=== PATIENT | female | born 2000 | race Caucasian/White ===

== ENCOUNTER 2021-03-17 11:39 | Emergency (ER) | payer OTHER, SELFPAY ==
[2021-03-17 12:01] VITALS: BP 110/71; PULSE 92; RESP 14; TEMP 36.4; O2SAT 99; BMI 18.0
[2021-03-17 12:28] LABS: MANUAL DIFF FLAG NO
[2021-03-17 12:29] LABS: Basophils Percent Auto 0.6 % (0-2); Eosinophils Absolute Auto 0.2 X10*3/uL (0.0-0.4); Eosinophils Percent Auto 3.7 % (0-4); Hematocrit 41.6 % (37-47); Hemoglobin 13.7 g/dl (12.0-16.0); Imm Gran Abs Auto 0.01 X10*3/uL (0.00-0.03); Imm Gran Pct Auto 0.2 % (0.0-0.4); Lymphocytes Absolute Auto 2.3 X10*3/uL (1.2-4.9); Lymphocytes Percent Auto 35.6 % (20-40); Mean Corpuscular HGB Conc 32.9 g/dl (31.0-35.0); Mean Corpuscular Hemoglobin 28.7 pg (27.0-33.0); Mean Corpuscular Volume 87.2 fL (80-98); Mean Platelet Volume 10.8 fL (9.4-12.3); Monocytes Absolute Auto 0.4 X10*3/uL (0.1-1.2); Monocytes Percent Auto 6.4 % (2-11); Neutrophils Absolute Auto 3.4 X10*3/uL (2.0-8.3); Neutrophils Percent Auto 53.5 % (45-73); Platelet Count 234 X10*3/uL (160-400); Red Blood Count 4.77 X10*6/uL (4.20-5.50); Red Cell Distribution Width 14.9 % (11.0-16.0); White Blood Count 6.4 X10*3/uL (4.8-10.8)
[2021-03-17 12:37] LABS: INTERNATIONAL NORM RATIO 0.9 (0.9-1.1); Prothrombin Time 10.6 SEC (10.8-13.0)
[2021-03-17 12:40] LABS: Partial Thromboplastin Time 37.3 SEC (24.1-38.0)
--- NOTE | 2021-03-17 12:46 | ED_ITS ---
HPI - General Adult General Chief complaint: Skin/Abscess/Foreign Body Stated complaint: bruising unknown cause Time Seen by Provider: 03/17/21 12:10 Source: patient Mode of arrival: ambulatory History of Present Illness HPI narrative: 20-year-old female with a past medical history of anemia presenting to the ED complaining of random bruising to bilateral thighs and various stages of healing x1 month. Denies known injury/trauma or falls. Denies history of abuse, reports she feels safe at home, denies known personal or family history of bleeding or clotting disorders. Denies fever, chills, CP/SOB, lightheadedness/dizziness, headache, abdominal pain, nausea/vomiting, recent travel Related Data Allergies Allergy/AdvReac Type Severity Reaction Status Date / Time Penicillins [PENICILLINS] Allergy Unknown HIVES Unverified 06/18/20 19:10 Review of Systems Review of Systems: Constitutional: No Fever, No Chills, No Fatigue, No Malaise ENT/Mouth: No sore throat, No Rhinorrhea, No Swallowing Difficulty Eyes: No Eye Pain, No Swelling, No Redness, No Vision Changes Cardiovascular: No Chest Pain, No SOB, No Edema Respiratory: No Cough, No Sputum, No Dyspnea Gastrointestinal: No Nausea, No Vomiting, No Abdominal pain, No Hematochezia, No Melena Genitourinary: No irregular bleeding, No Hematuria Musculoskeletal: No joint pain, No Myalgias, No Joint Swelling Skin: No rash Neuro: No Weakness, No Numbness, No Paresthesias, No Dizziness, No Headache Heme/Lymph: + Bruising, No Bleeding, No Lymphadenopathy Yes all other systems are reviewed and are negative [facility] Past Medical History Attestation statement: The following information was validated with the patient. Medical History Anemia Social History Social History Advance Directives: No Advance Directives Information Provided: No Patient : No Physical Exam Vital Signs: Vital Signs: Last Vital Signs Temp 97.5 F 03/17/21 12:01 Pulse 92 03/17/21 12:01 Resp 14 03/17/21 12:01 BP 110/71 03/17/21 12:01 Pulse Ox 99 03/17/21 12:01 Body Mass Index 18.0 Const: General: cooperative, healthy appearing, no acute distress, alert and awake Orientation/consciousness: patient oriented x3 Limitations: no limitations HENMT: Head: Yes normal to inspection Ears: hearing grossly normal bilaterally General nose exam: Normal external nose present Face and sinus: Yes normal facial exam Eyes: General: appearance normal, both eyes and all related structures Corneas: corneas normal Pupils: Equal, round and reactive pupils present EOM: EOMs intact bilaterally Neck: Neck: Yes normal visual inspection and Yes no meningeal signs Resp: Effort & Inspection: normal respiratory effort, no stridor and not tachypneic Cardio: Rate: regular rate GI: Inspection: Yes normal to inspection Palpation (GI): Soft to palpation Skin: Other: Bruising in various stages of healing noted to bilateral thighs. + mildly tender to palpation. No surrounding cellulitis/streaking Neuro: General: patient oriented x3, tone normal, moves all extremities and no meningeal signs Cranial nerves: Yes Equal, round and reactive pupils present Gait exam (Neuro): Normal gait present Extrem: General: Yes normal to inspection Course Course Course Narrative: -1339--labs unremarkable. Results discussed with patient including worrisome signs and symptoms and strict return precautions. Patient is to follow up with PCP. She verbalized understanding feel safe for discharge home Medical Decision Making MDM Narrative Medical decision making narrative: 20-year-old female with a past medical history of anemia presenting to the ED complaining of random bruising to bilateral thighs and various stages of healing x1 month. On exam vital signs stable, NAD, well appearing, bruising noted in various stages of healing to bilateral thighs. Concern for bleeding/clotting disorder vs anemia vs ?abuse or injury although patient denies Plan: CBC, BMP, PT INR/PTT Lab Data Result diagrams: 03/17/21 12:20 03/17/21 12:20 Labs: Lab Results 03/17/21 03/17/21 03/17/21 Range/Units 12:20 12:20 12:20 WBC 6.4 (4.8-10.8) X10*3/uL RBC 4.77 (4.20-5.50) X10*6/uL Hgb 13.7 (12.0-16.0) g/dl Hct 41.6 (37-47) % MCV 87.2 (80-98) fL MCH 28.7 (27.0-33.0) pg MCHC 32.9 (31.0-35.0) g/dl RDW 14.9 (11.0-16.0) % Plt Count 234 (160-400) X10*3/uL MPV 10.8 (9.4-12.3) fL Immature Gran % (Auto) 0.2 (0.0-0.4) % Neut % (Auto) 53.5 (45-73) % Lymph % (Auto) 35.6 (20-40) % [place] % (Auto) 6.4 (2-11) % Eos % (Auto) 3.7 (0-4) % Baso % (Auto) 0.6 (0-2) % Lymph # (Auto) 2.3 (1.2-4.9) X10*3/uL [place] # (Auto) 0.4 (0.1-1.2) X10*3/uL Eos # (Auto) 0.2 (0.0-0.4) X10*3/uL Baso # (Auto) 0.0 (0.0-0.2) X10*3/uL Abs Immat Gran (auto) 0.01 (0.00-0.03) X10*3/uL Absolute Neuts (auto) 3.4 (2.0-8.3) X10*3/uL Absolute Nucleated RBC 0.000 (0.0-0.012) X10*3/uL Nucleated RBC % (auto) 0.0 (0.0-0.2) /100WBC PT 10.6 L (10.8-13.0) SEC INR 0.9 (0.9-1.1) APTT 37.3 (24.1-38.0) SEC Sodium 141 (135-145) mmol/L Potassium 4.6 (3.3-5.1) mmol/L Chloride 107 (96-108) mmol/L Carbon Dioxide 27 (22-29) mmol/L Anion Gap 12 (12-20) BUN 18 H (9-16) mg/dL Creatinine 0.84 (0.5-1.4) mg/dL Estim Creat Clear Calc 80.2 Estimated GFR > 60 Random Glucose 84 (60-115) mg/dL Calcium 9.6 (8.4-10.2) mg/dL Magnesium 2.3 (1.6-2.6) mg/dL Total Bilirubin 0.3 (0.0-1.0) mg/dL Direct Bilirubin < 0.2 (0.0-0.5) mg/dL AST 16 (5-31) U/L ALT 10 (0-31) U/L Alkaline Phosphatase 82 (39-117) U/L Total Protein 7.2 (6.5-8.0) g/dL Albumin 4.6 (3.5-5.0) g/dL Discharge Plan Discharge Clinical Impression: Abnormal bruising Patient Disposition: Home, Self-Care Instructions: Contusion in Adults (ED) Additional Instructions: Your blood work was unremarkable/reassuring today in the ED. It is important for you to follow-up with her primary care doctor for further studies outpatient If her breathing persists or continues, he developed more bruises, any bleeding, headaches, chest pain please return to the ED Referrals: Physician,Unknown [Primary Care Provider] - 2 days
[2021-03-17 13:03] LABS: Alanine Aminotransferase 10 U/L (0-31); Albumin Level 4.6 g/dL (3.5-5.0); Alkaline Phosphatase 82 U/L (39-117); Anion Gap 12 (12-20); Aspartate Amino Transferase 16 U/L (5-31); Bilirubin Direct < 0.2 mg/dL (0.0-0.5); Bilirubin Total 0.3 mg/dL (0.0-1.0); Blood Urea Nitrogen 18 mg/dL (9-16); Calcium 9.6 mg/dL (8.4-10.2); Carbon Dioxide 27 mmol/L (22-29); Chloride 107 mmol/L (96-108); Creatinine Clr Calc Pharmacy 80.2; Estimated Glomerular Filt Rate > 60; Glucose Random 84 mg/dL (60-115); Magnesium 2.3 mg/dL (1.6-2.6); Potassium 4.6 mmol/L (3.3-5.1); Sodium 141 mmol/L (135-145); Total Protein 7.2 g/dL (6.5-8.0)
== END 2021-03-17 14:08 | disposition home or self-care (01) ==
PROVIDERS: Physician Assistant; Emergency Provider Emergency Medicine
DX: R23.3 Spontaneous ecchymoses (principal); D64.9 Anemia, unspecified
CPT/HCPCS: 36415; 80048; 80076; 83735; 85025; 85610; 85730; 99282; 99283

== ENCOUNTER 2021-05-25 21:26 | Emergency (ER) | payer OTHER, SELFPAY ==
[2021-05-25 22:10] VITALS: BP 90/64; PULSE 133; RESP 17; TEMP 38.1; O2SAT 98; BMI 19.8
--- NOTE | 2021-05-25 23:12 | ED.GENADULT ---
HPI - General Adult General Chief complaint: General Medical Stated complaint: body weakness Time Seen by Provider: 05/25/21 23:06 Source: patient Mode of arrival: ambulatory Limitations: no limitations History of Present Illness HPI narrative: Patient comes emergency room complaining of a migraine headache. States it started this morning. Patient states she has not taking any medication including Tylenol or ibuprofen. Patient also complaining of generalized body aches. Denies URI or UTI symptoms, no nausea vomiting. Denies visual changes Related Data Previous Rx's Medication Instructions Recorded ibuprofen 600 mg tablet 600 mg PO TID PRN #20 tab 05/26/21 Allergies Allergy/AdvReac Type Severity Reaction Status Date / Time Penicillins [PENICILLINS] Allergy Unknown HIVES Verified 05/25/21 22:10 Review of Systems Review of Systems: Constitutional : No Weight loss, No Fever, No Chills, No Night Sweats, No Fatigue, No Malaise ENT/Mouth : No Hearing loss, No Ear Pain, No Nasal Congestion, No Sinus Pain, No Hoarseness, No sore throat, No Rhinorrhea, No Swallowing Difficulty Eyes: No Eye Pain, No Swelling, No Redness, No Foreign Body, No Discharge, No Vision Changes Cardiovascular : No Chest Pain, No SOB, No Dyspnea on Exertion, No Orthopnea, No Edema, No Palpitations Respiratory : No Cough, No Sputum, No Wheezing, No Smoke Exposure, No Dyspnea Gastrointestinal : No Nausea, No Vomiting, No Diarrhea, No Constipation, No abdominal Pain, No Hematochezia, No Melena Genitourinary : no irregular bleeding, No Dysuria, No Urinary Frequency, No Hematuria, No Urinary Incontinence, No Urgency, No Flank Pain, No Urinary Flow Changes, No Hesitancy Musculoskeletal : No joint pain, complaining of diffuse body aches, No Joint Swelling Skin : No Skin Lesions, No rash Neuro : No Weakness, No Numbness, No Paresthesias, No Loss of Consciousness, no dizziness, complaining of migraine headache Psych : No Anxiety/Panic, No Depression, No SI/HI/AH/VH, No Social Issues, Heme/Lymph: No Bruising, No Bleeding,No Lymphadenopathy Endocrine : No Polyuria, No Polydipsia, No Temperature Intolerance PMFSH Past Medical History Medical History Anemia Migraines Social History Social History Advance Directives: No Advance Directives Information Provided: No Patient : No Physical Exam Vital Signs: Vital Signs: Last Vital Signs Temp 100.6 F H 05/25/21 22:10 Pulse 133 H 05/25/21 22:10 Resp 17 05/25/21 22:10 BP 90/64 05/25/21 22:10 Pulse Ox 98 05/25/21 22:10 Body Mass Index 19.8 Const: Other: Appearance: Alert. Oriented X3. Seems uncomfortable Eyes: Pupils equal, round and reactive to light. Patient has photophobia ENT: Pharynx normal. Neck: Normal inspection. Neck supple. No lymph nodes noted. No crepitus CVS: Normal heart rate and rhythm. Pulses normal. Normal S1 and S2 Respiratory: No respiratory distress. Breath sounds normal. No Wheezing. No rales Abdomen: Soft and nontender. No rigidity. No distention. good BS x4 Skin: Skin warm and dry. Normal skin color. Normal skin turgor. Extremities: No lower extremity edema. No Lacerations. No Rash Neuro: Oriented X 3. No motor deficit. No sensory deficit. Moving all extermities. No slurred speech. Course Course Course Narrative: Patient feels much better after the IV medications. Patient denies headache. Patient does not want to wait for COVID results. Discharge Plan Discharge Clinical Impression: Headache Qualifiers: Headache type: tension-type Headache chronicity pattern: acute headache Intractability: not intractable Qualified Code(s): G44.209 - Tension-type headache, unspecified, not intractable Patient Disposition: Home, Self-Care Instructions: Acute Headache (ED) Additional Instructions: Please follow-up with your primary care physician tomorrow. If you have any worsening or new symptoms, please return to the emergency room or call 911 Prescriptions: New ibuprofen 600 mg tablet 600 mg PO TID PRN (Reason: fever or pain) Qty: 20 RF: 0
[2021-05-25] MEDS: Ketorolac Tromethamine 15 MG/ML VIAL 30 MG IVPUSH (23:22)
[2021-05-25] MEDS: 0.9 % Sodium Chloride 1,000 ML 999 ML IVCONT (23:22)
[2021-05-25] MEDS: diphenhydrAMINE HCL 50 MG/ML VIAL IVPUSH (23:23)
[2021-05-25] MEDS: Metoclopramide HCl 10 MG/2 ML VIAL IVPUSH (23:23)
== END 2021-05-26 01:30 | disposition home or self-care (01) ==
PROVIDERS: Emergency Provider Emergency Medicine; PCP Pediatrics
DX: G44.209 Tension-type headache, unspecified, not intractable (principal); M79.10 Myalgia, unspecified site
CPT/HCPCS: 0241U; 36415; 96361; 96374; 96375; 99284; J1200; J1885; J2765

== ENCOUNTER 2023-12-27 09:01 | Outpatient (AMB) | payer OTHER, SELFPAY ==
[2023-12-27 09:36] VITALS: BP 114/66; PULSE 72; TEMP 36.8; O2SAT 99; BMI 19.2
--- NOTE | 2023-12-27 09:36 | MHC.OFFWIV ---
Intake Vital Signs 12/27/23 09:36 Height 5 ft 4 in Weight 112 lb 2 oz BMI 19.2 BP 114/66 Blood Pressure Location Lt brachial Position Sitting Pulse 72 Pulse Source Pulse Oximeter Temp 98.3 F Temp Source Oral Pulse Oximetry (%) 99 Oxygen Delivery Method Room Air Intake Visit Reasons: Test for STD (Lobby) Intake Note: Pt presents to the office today for STD testing. Pt states that her discharge is cabazon green which started about 3 days ago. She states she has a new partner and had unprotected sex on Nov 19. Allergies Penicillins [PENICILLINS] Allergy (Unknown, Verified 12/27/23 09:36) HIVES HPI HPI Comments History of Present Illness Details She presents to office with concern STD She noticed a few days ago + green discharge She denies pain + slight odor Had unprotected sexual intercourse hx No dysuria, frequency or urgency PFSH Medical History Migraines Anemia Social History (Updated 12/27/23 @ 09:46 by Adrianna Salgado MA) Household Members: None Housing: Apartment Alcohol intake: never Patient Tobacco Use Status: Never used Tobacco Use of substances other than those prescribed or required for medical reasons: No Review of Systems Const Denies chills and Denies fever(s) GI Denies abdominal pain Denies dysuria, Denies urinary incontinence, Denies urinary hesitancy, Denies urinary urgency, Reports vaginal discharge and Reports vaginal odor Skin/Breast Denies rash Physical Exam Vital Signs: Last Vital Signs Temp 98.3 F 12/27/23 09:36 Pulse 72 12/27/23 09:36 BP 114/66 12/27/23 09:36 Pulse Ox 99 12/27/23 09:36 Oxygen Delivery Method Room Air 12/27/23 09:36 BMI result Body Mass Index 19.2 General: Non-toxic, NAD. Speaking full sentences. Skin: Warm dry throughout Eye: EOMI Respiratory: No respiratory distress Abdominal: No abdominal tenderness to palpation MSK: Full ROM extremities. Neurology: A/O. No aphasia or facial droop. Gait without abnormality Psych: Good mood and affect Assessment & Plan Assessment & Plan (1) Vaginal discharge: Code(s): N89.8 - Other specified noninflammatory disorders of vagina Plan: Patient seen and evaluated. BV swab obtained. Dirty urine for GC/Chlamydia sent U/a: normal HCG deferred per pt as she has taken multiple negative tests at home recently. Patient gave verbal understanding and had no additional questions or concerns at time of discharge All questions answered Orders: Orders CT NG by PCR Today N89.8 - Other specified noninflammatory disorders of vagina Bacterial Vaginosis Panel Today N89.8 - Other specified noninflammatory disorders of vagina Coding Level of Care Code Est Pt Level 3 (99267) Diagnoses Vaginal discharge N89.8
== END 2023-12-27 11:05 | disposition home or self-care (01) ==
PROVIDERS: PCP Pediatrics; Visit Provider Physician Assistant
DX: N89.8 Other specified noninflammatory disorders of vagina (principal)
CPT/HCPCS: 99213

== ENCOUNTER 2023-12-27 11:01 | Outpatient (REF) | payer OTHER, SELFPAY ==
[2023-12-27 15:39] LABS: CT PCR DETECTED (Not Detect.); NG PCR NOT DETECTED (Not Detect.)
[2023-12-28 11:31] LABS: BV Int Neg Control Negative (Negative); BV Int Pos Control Positive (Positive)
== END 2023-12-27 11:02 | disposition home or self-care (01) ==
LOC: HO.LAB 11:01
PROVIDERS: Visit Provider Physician Assistant
DX: N89.8 Other specified noninflammatory disorders of vagina (principal); Z11.3 Encounter for screening for infections with a predominantly sexual mode of transmission
CPT/HCPCS: 0353U; 87480; 87510; 87660